=== PATIENT | female | born 1990 | race Caucasian/White ===

== ENCOUNTER 2022-08-16 12:17 | Emergency (ER) | payer OTHER, SELFPAY ==
[2022-08-16] VITALS (15 sets, daily range): BP systolic 109–126; BP diastolic 68–80; PULSE 70–124; RESP 16–32; TEMP 36.4; O2SAT 97–100
--- NOTE | ~2022-08-16 | CT_ITS ---
EXAMINATION: CT brain wo con DATE: 08/16/2022 16:09 INDICATION: Headache. TECHNIQUE: Computed tomography (CT) of the head was performed without intravenous contrast. The mA wa s adjusted according to patient size. Iterative reconstruction technique was employed. The dose-lengt h product was 605.33 mGy-cm. COMPARISON: None FINDINGS: There is no intracranial hemorrhage, acute infarction, or abnormal intracranial mass lesion . The ventricles are normal in size. The orbits are normal. There is mucosal thickening in the parana arin sinuses. The mastoid air cells are normal. IMPRESSION: 1. Normal brain. Reviewed, dictated and finalized at location A. MILL TEAM LEADER IMPRESSION: 1. Normal brain.
--- NOTE | ~2022-08-16 | XR_ITS ---
EXAMINATION: XR chest 1V portable INDICATION: Fever and cough, COVID 19 positive TECHNIQUE: Portable AP chest at 1447 hours COMPARISON: None available FINDINGS: The lungs are free of acute opacities. No pleural effusion or pneumothorax. The cardiomedia stinal silhouette is normal. IMPRESSION: 1. No acute cardiopulmonary abnormality. Reviewed, dictated and finalized at location L. BALL COVER TREATER
--- NOTE | 2022-08-16 12:45 | ECG_ITS ---
Measurements Intervals [place] Rate: 116 P: 85 TX: 120 QRS: 105 QRSD: 80 T: 58 QT: 317 QTc: 441 Interpretive Statements SINUS TACHYCARDIA NONSPECIFIC ST AND T-WAVE ABNORMALITY NO PREVIOUS ECG AVAILABLE FOR COMPARISON Electronically Signed On 08-16-2022 16:26:54 VP DIRECTOR OF FINANCE by Mary Bethea M.D.
[2022-08-16 13:31] LABS: Influenza A QL RT-PCR Negative (Negative); Influenza B QL RT-PCR Negative (Negative); RSV RNA, RT-PCR Negative (Negative); SARS-CoV-2 RNA PCR Positive
[2022-08-16] MEDS: SODIUM CHLORIDE 0.9% IV 1,000 ML 999 ML IV CONT (15:09)
[2022-08-16 15:16] LABS: Basophils Absolute Auto 0.1 K/mm3 (0.0-0.1); Basophils Percent Auto 1.6 % (0.2-1.2); Eosinophils Absolute Auto 0.1 K/mm3 (0-0.3); Eosinophils Percent Auto 2.5 % (0-4.4); Hematocrit 43.8 % (37.0-47.0); Hemoglobin 14.4 g/dL (12.0-15.0); Immature Granulocyte Absolute 0.01 K/mm3 (0.00-0.031); Immature Granulocyte Percent A 0.2 % (0-0.5); Lymphocytes Absolute Auto 1.03 K/mm3 (0.9-3.2); Mean Corpuscular HGB Conc 32.9 g/dl (32-36); Mean Corpuscular Hemoglobin 29.8 pg (26-34); Mean Corpuscular Volume 90.5 fl (80-100); Mean Platelet Volume 9.2 fl (7.4-10.4); Monocytes Absolute Auto 0.8 K/mm3 (0.1-0.6); Monocytes Percent Auto 18.3 % (2.6-8.5); Neutrophils Absolute Auto 2.4 K/mm3 (1.3-6.7); Neutrophils Percent Auto 54.4 % (45.5-73.1); Platelet Count Result 220 k/mm3 (150-375); Red Blood Count 4.84 M/mm3 (4.2-5.4); Red Cell Distribution Width 13.1 % (11.5-14.5); White Blood Count 4.5 K/mm3 (4.5-10.0)
[2022-08-16 15:31] LABS: Partial Thromboplastin Time 28.4 SECONDS (22.3-36.8)
[2022-08-16 15:32] LABS: Alanine Aminotransferase 21 U/L (6-35); Albumin Level 4.6 g/dL (3.5-5.1); Alkaline Phosphatase 43 U/L (38-126); Anion Gap 10 mmol/L (8-16); Aspartate Amino Transferase 23 U/L (14-36); Bilirubin,Total 0.5 mg/dL (0.2-1.3); Blood Urea Nitrogen 8 mg/dL (7-17); Calcium 8.3 mg/dL (8.4-10.2); Carbon Dioxide 21 mmol/L (22-30); Chloride 105 mmol/L (98-107); Estimated CRCL calculation 108 ml/min; Estimated Glomerular Filt Rate > 60; Glucose 81 mg/dL (65-110); Potassium 3.8 mmol/L (3.4-5.0); Sodium 136 mmol/L (137-145)
[2022-08-16 15:33] LABS: INR 1.2; Prothrombin Time 14.3 Seconds (11.1-14.7)
--- NOTE | 2022-08-16 15:34 | ED.URI ---
HPI - URI/Sore Throat General Chief Complaint: Upper Respiratory Infection Stated Complaint: cough symptoms Time Seen by Provider: 08/16/22 14:35 Source: patient Mode of arrival: ambulatory Limitations: no limitations History of Present Illness HPI Narrative: This is a 32 year old female that presents to the ER for cold symptoms ongoing over the last 2 days. Reports fever, cough, congestion, sore throat, headache and myalgias. Also reports shortness of breath. She is COVID vaccinated. Denies chest pain. Related Data Allergies Allergy/AdvReac Type Severity Reaction Status Date / Time latex Allergy Unknown Unknown Verified 08/16/22 14:27 Review of Systems Review of Systems: CONSTITUTIONAL: Reports fever ENT: Reports rhinorrhea, congestion, sore throat CARDIOVASCULAR: Denies chest pain, or edema. RESPIRATORY: Reports cough and dyspnea. NEUROLOGIC: Reports headache. Denies numbness, or weakness. All systems reviewed & are unremarkable except as noted in HPI and below PMFSH Past Medical History Medical History (Updated 08/16/22 @ 16:03 by Caron Camacho PA-C) History of asthma Social History Social History (Updated 08/16/22 @ 15:38 by Caron Camacho PA-C) Substance use: never Exam Narrative: GENERAL: Well-appearing, well-nourished, and in no acute distress. HEAD: Normocephalic, atraumatic. EYES: PERRLA and EOMI. ENT: Nares clear, no rhinorrhea or epistaxis. Mucous membranes moist. Oropharynx without tonsillar hypertrophy exudate or other lesions. Bilateral TMs pearly crenshaw non-bulging NECK: Supple. No adenopathy or masses. CHEST: Clear to auscultation. No respiratory distress. No wheezes rales or rhonchi HEART: Regular rate and rhythm. No murmur heard. Normal peripheral pulses. EXTREMITIES: Normal range of motion. No edema. SKIN: Warm, dry, no rash. NEURO: No focal deficits. Alert and oriented x3. CN II-XII grossly intact PSYCH: Normal mood and affect Course Course Emergency Course: Patient updated on workup. Resting comfortably. Agrees with plan of care Vital Signs Vital signs: Vital Signs Temperature 97.5 F L 08/16/22 12:41 Pulse Rate 124 H 08/16/22 12:41 Respiratory Rate 18 08/16/22 12:41 Blood Pressure 117/76 08/16/22 12:41 Pulse Oximetry 97 08/16/22 12:41 Oxygen Delivery Room Air 08/16/22 12:41 Temperature 97.5 F L 08/16/22 12:41 Pulse Rate 93 08/16/22 15:30 Respiratory Rate 16 08/16/22 15:30 Blood Pressure 126/80 08/16/22 15:30 Pulse Oximetry 98 08/16/22 15:30 Oxygen Delivery Room Air 08/16/22 12:41 MDM - URI/Sore Throat MDM Narrative Medical decision making narrative: Patient presents to the ER for cold symptoms ongoing over the last 2 days. Reporting fever, cough, shortness of breath and headache. She is afebrile and nontoxic appearing. Tachycardic upon arrival. This normalized with IV fluid administration. CBC and metabolic panel without concerning findings. Chest x-ray without acute findings. D dimer is not elevated. Patient found to be positive for COVID. CT brain is without acute findings. Patient resting comfortably after Tylenol, Reglan and Benadryl. Patient updated on workup and agrees with plan of care. She is to follow up with PCP. She was given warnings to return to the ER Differential Diagnosis Differential diagnosis: Likely upper respiratory infection, sinusitis, viral infection, bronchitis, influenza, pharyngitis and other (covid 19, PE) Lab Data Attestation: I reviewed the patient's lab results. 08/16/22 15:01 08/16/22 15:01 Labs: Lab Results 08/16/22 08/16/22 08/16/22 Range/Units 12:50 15:01 15:01 WBC 4.5 (4.5-10.0) K/mm3 RBC 4.84 (4.2-5.4) M/mm3 Hgb 14.4 (12.0-15.0) g/dL Hct 43.8 (37.0-47.0) % MCV 90.5 (80-100) fl MCH 29.8 (26-34) pg MCHC 32.9 (32-36) g/dl RDW 13.1 (11.5-14.5) % Plt Count 220 (150-375) k/mm3 MPV 9.2 (7.4-10.4) fl Immature Gran % (A
[2022-08-16] MEDS: METOCLOPRAMIDE HCL INJ 10 MG/2 ML VIAL IV PUSH (15:37)
[2022-08-16] MEDS: diphenhydrAMINE HCl INJ 50 MG/ML VIAL 25 MG IV PUSH (15:37)
[2022-08-16 15:55] LABS: D Dimer 0.28 ug/mL (<0.48)
== END 2022-08-16 17:25 | disposition home or self-care (01) ==
PROVIDERS: Emergency Medicine; Emergency Provider Physician Assistant
DX: U07.1 COVID-19 (principal); J45.909 Unspecified asthma, uncomplicated
CPT/HCPCS: 36415; 70450; 71045; 80053; 85025; 85380; 85610; 85730; 87637; 93005; 96361; 96365; 96375; 99284; J0131; J1200; J2765; J7030

== ENCOUNTER 2022-11-04 09:52 | Outpatient (CLI) | payer OTHER, SELFPAY ==
[2022-11-04 11:19] LABS: HIV 1/2 Ab P24 Ag Result Negative (Negative)
[2022-11-04 11:24] LABS: Hepatitis B Surface Antigen Negative (Negative)
[2022-11-04 11:29] LABS: HAV RESULT Negative (Negative)
[2022-11-04 11:41] LABS: Hepatitis C Virus Antibody Negative (Negative)
[2022-11-07 10:05] LABS: Rapid Plasma Reagin Non-Reactive (NonReactive)
== END 2022-11-04 09:53 | disposition home or self-care (01) ==
LOC: ANHLAB 09:53
PROVIDERS: Visit Provider Student in an Organized Health Care Education/Training Program
DX: Z01.419 Encounter for gynecological examination (general) (routine) without abnormal findings (principal); A64 Unspecified sexually transmitted disease
CPT/HCPCS: 36415; 86592; 86695; 86696; 86703; 86709; 86803; 87340; G0432

== ENCOUNTER 2023-02-09 17:13 | Emergency (ER) | payer OTHER, SELFPAY ==
[2023-02-09 17:30] VITALS: BP 136/71; PULSE 81; RESP 18; TEMP 36.7; O2SAT 99
--- NOTE | 2023-02-09 17:53 | ED.FEMALEGU ---
HPI - Female Genitourinary General Chief complaint: Urogenital-Female Stated complaint: uti symptoms Time Seen by Provider: 02/09/23 17:43 Source: patient and RN notes reviewed Mode of arrival: ambulatory Limitations: no limitations History of Present Illness HPI Narrative: Patient presents today complaining of 2 month history of dysuria, lower abdominal pain, painful sexual intercourse, and white vaginal discharge. States she would like to be tested for sexually transmitted infections today. She does currently have 1 male partner. Denies hematuria. Related Data Home Medications Medication Instructions Recorded Confirmed diltiazem HCl 180 mg 180 mg PO DAILY 10/07/22 02/09/23 tablet,extended release 24 hr albuterol sulfate 90 mcg/actuation 2 puff inhalation Q4H 02/09/23 02/09/23 aerosol inhaler (Ventolin HFA) budesonide-formoterol HFA 80 2 puff inhalation BID 02/09/23 02/09/23 mcg-4.5 mcg/actuation aerosol inhaler (Symbicort) montelukast 10 mg tablet 10 mg PO DAILY 02/09/23 02/09/23 Allergies Allergy/AdvReac Type Severity Reaction Status Date / Time latex Allergy Mild Hives Verified 10/07/22 08:38 Review of Systems Review of Systems: CONSTITUTIONAL: Denies body aches, fever, chills, or sweats. EYES: Denies visual changes, redness, or discharge. ENT: Denies rhinorrhea, congestion, sore throat, or otalgia. CARDIOVASCULAR: Denies chest pain, palpitations, or edema. RESPIRATORY: Denies cough or dyspnea. GASTROINTESTINAL: Denies abdominal pain, nausea, vomiting, or diarrhea. GENITOURINARY: + dysuria, dyspareunia, vaginal discharge, lower abdominal pain SKIN: Denies rash, itching, or wounds. MUSCULOSKELETAL: Denies back pain, joint pain, or myalgia. NEUROLOGIC: Denies headache, numbness, tingling, or weakness. PSYCH: Denies depression or anxiety. 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 Please see nursing chart for further information. There is no relevant family history pertinent to the presenting complaint Exam Narrative: GENERAL: Well-appearing, well-nourished, and in no acute distress. HEAD: Normocephalic, atraumatic. EYES: EOMI. No redness or drainage. Conjunctivae normal. ENT: Mucous membranes pink and moist. NECK: Normal AROM. CHEST: No respiratory distress. Clear to auscultation. HEART: Regular rate and rhythm. No murmur appreciated. ABDOMEN: Soft, nontender, nondistended, normal active bowel sounds. EXTREMITIES: Normal range of motion. No edema. SKIN: Warm, dry, no rash. Capillary refill normal. Normal skin turgor. NEURO: No focal deficits. Alert and oriented x3. Gait steady. PSYCH: Normal affect. No signs of depression or anxiety. Course Course Level of Care: Express Care Visit Vital Signs
[2023-02-09] MEDS: cefTRIAXone 500 MG, LIDOCAINE HCL 1% LOCAL INJ 1 ML IM (18:11)
== END 2023-02-09 18:31 | disposition home or self-care (01) ==
PROVIDERS: Emergency Provider Nurse Practitioner; PCP Family Medicine
DX: N30.01 Acute cystitis with hematuria (principal); Z11.3 Encounter for screening for infections with a predominantly sexual mode of transmission; F84.0 Autistic disorder; J45.909 Unspecified asthma, uncomplicated; Z87.891 Personal history of nicotine dependence
CPT/HCPCS: 81003; 87077; 87086; 87088; 87186; 87491; 87591; 87661; 96372; 99214; G0463; J0696

== ENCOUNTER 2023-05-27 12:30 | Emergency (ER) | payer OTHER, SELFPAY ==
[2023-05-27 13:11] VITALS: BP 127/89; PULSE 90; RESP 16; TEMP 37; O2SAT 97
--- NOTE | 2023-05-27 13:12 | ED.URI ---
HPI - URI/Sore Throat General Chief Complaint: Upper Respiratory Infection Stated Complaint: fever,sweats,sore throat Time Seen by Provider: 05/27/23 13:12 Source: patient, RN notes reviewed and old records reviewed Mode of arrival: ambulatory Limitations: no limitations History of Present Illness HPI Narrative: 32-YEAR-OLD FEMALE PRESENTS TO [facility] WITH COMPLAINTS SLIGHT COUGH AND SCRATCHY THROAT FOR FEW DAYS. PATIENT STATES SHE HAS SEASONAL ALLERGIES CANNOT TELL IF IT IS THAT. PATIENT STATES HERE TO BE TESTED DUE TO CHILD HAVING A POSITIVE STREP TEST TODAY. MD elicited complaint: cough and sore throat Related Data Home Medications Medication Instructions Recorded Confirmed albuterol sulfate 90 mcg/actuation 2 puff inhalation Q4H 02/09/23 05/27/23 aerosol inhaler (Ventolin HFA) budesonide-formoterol HFA 80 2 puff inhalation BID 02/09/23 05/27/23 mcg-4.5 mcg/actuation aerosol inhaler (Symbicort) montelukast 10 mg tablet 10 mg PO DAILY 02/09/23 05/27/23 Allergies Allergy/AdvReac Type Severity Reaction Status Date / Time latex Allergy Mild Hives Verified 05/27/23 13:18 Review of Systems Review of Systems: All systems reviewed & are unremarkable except as noted in HPI and below Constitutional: Constitutional: Reports no additional constitutional complaints Eyes: Eyes: Reports no additional eye complaints ENT: Reports as per HPI and Reports sore throat Cardiovascular: Cardiovascular: Reports no additional cardiovascular complaints Respiratory: Respiratory: Reports as per HPI and Reports cough Neurologic: Reports system reviewed and no additional complaints, except as documented PMF Past Medical History Medical History Atrial tachycardia Autism 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 History of asthma Surgical History Surgical History H/O gynecological procedure nexplanon insertion 2017 nexplanon removal 2019 H/O partial thyroidectomy History of appendectomy History of tubal ligation Family History Family History Grandparent Breast cancer Mother Santosh's disease Lupus Social History Social History Smoking status: Never smoker Alcohol intake: never Substance use: current Other substance usage details: cbd gummies Living arrangements: with family Additional living arrangements comments: kids Occupation/Education: occupation 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 There is no relevant family history pertinent to the patient complaint. Exam Const: General: cooperative, healthy appearing, no acute distress and well nourished Nutritional Appearance: well nourished Orientation/consciousness: patient oriented x3 Limitations: no limitations HENMT: Head: normal to inspection and normocephalic Ears: external ears normal, TM's normal bilaterally, mastoids normal and Abnormal EAC present Face/Nose/Sinus: normal facial exam Face and sinus: normal facial exam Mouth: Yes Normal oral and palatal mucosa present, Yes oropharynx normal and Yes moist mucous membranes Throat: posterior oropharynx normal, tonsils normal, uvula midline and no uvular edema Eyes: General: appearance normal, both eyes and all related structures Sclera: sclerae normal Pupils: Equal, round and reactive pupils present Resp: Effort & Inspection: normal respiratory effort, able to speak in complete sentences, no audible wheezes, no co
== END 2023-05-27 13:31 | disposition home or self-care (01) ==
PROVIDERS: Emergency Provider Registered Nurse; PCP Family Medicine
DX: J06.9 Acute upper respiratory infection, unspecified (principal); F84.0 Autistic disorder; J45.909 Unspecified asthma, uncomplicated; Z90.89 Acquired absence of other organs
CPT/HCPCS: 87081; 87880; 99213; G0463

== ENCOUNTER 2023-06-06 16:57 | Emergency (ER) | payer OTHER, SELFPAY ==
[2023-06-06 17:04] VITALS: BP 127/83; PULSE 87; RESP 16; TEMP 36.6; O2SAT 100
--- NOTE | 2023-06-06 17:29 | ED.GENADULT ---
HPI - General Adult General Chief complaint: Upper Respiratory Infection Stated complaint: Strep symptoms Source: patient Mode of arrival: ambulatory Limitations: no limitations History of Present Illness HPI narrative: Patient presents for evaluation of sick symptoms. She was evaluated here on 05/27/2023 after her child tested positive for strep. Strep at that time was negative. Sore throat has persisted and worsened. She reports hot flashes, chills, nausea, vomiting, diarrhea, sweats and generalized body aches. She denies any cough or shortness of breath. She took Tylenol, ibuprofen and has gargled with an antibacterial mouthwash. Her symptoms are not improving. Related Data Home Medications Medication Instructions Recorded Confirmed albuterol sulfate 90 mcg/actuation 2 puff inhalation Q4H 02/09/23 06/06/23 aerosol inhaler (Ventolin HFA) budesonide-formoterol HFA 80 2 puff inhalation BID 02/09/23 06/06/23 mcg-4.5 mcg/actuation aerosol inhaler (Symbicort) montelukast 10 mg tablet 10 mg PO DAILY 02/09/23 06/06/23 Allergies Allergy/AdvReac Type Severity Reaction Status Date / Time latex Allergy Mild Hives Verified 06/06/23 17:11 Review of Systems Review of Systems: CONSTITUTIONAL: Reports hot flashes, chills and sweats EYES: Denies visual changes, redness, or discharge. ENT: Reports sore throat and cervical lymphadenopathy. CARDIOVASCULAR: Denies chest pain, palpitations, or edema. RESPIRATORY: Denies cough or dyspnea. GASTROINTESTINAL: Reports nausea, vomiting and diarrhea GENITOURINARY: Denies dysuria or hematuria. SKIN: Denies rash or itching. MUSCULOSKELETAL: Reports generalized body aches NEUROLOGIC: Denies headache, numbness, dizziness, or weakness. PSYCHIATRIC: Denies anxiety or depression. 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 History of asthma Surgical History Surgical History H/O gynecological procedure nexplanon insertion 2017 nexplanon removal 2019 H/O partial thyroidectomy History of appendectomy History of tubal ligation Family History Family History Grandparent Breast cancer Mother Santosh's disease Lupus Social History Social History Smoking status: Never smoker Alcohol intake: never Substance use: current Other substance usage details: cbd gummies Living arrangements: with family Additional living arrangements comments: kids Occupation/Education: 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 EYES: PERRLA and EOMI. ENT: Nares clear, no rhinorrhea or epistaxis. Mucous membranes moist. Posterior pharyngeal erythema without exudate. Uvula is midline. Bilateral TMs pearly crenshaw nonbulging NECK: Supple. No adenopathy or masses. No carotid bruits or JVD CHEST: Clear to auscultation. No respiratory distress. No wheezes rales or rhonchi HEART: Regular rate and rhythm. No murmur heard. Normal peripheral pulses. ABDOMEN: Soft, nontender, nondistended, normal active bowel sounds. EXTREMITIES: Normal range of motion. No edema. SKIN: Warm, dry, no rash. NEURO: No focal deficits. Alert and oriented x3. PSYCH: Normal mood and affect. Course Course Emergency Course: This is a 32-year-old female who presented for evaluation a sore throat after recent strep exposure. Strep here negative. Influenza and COVID negative.
== END 2023-06-06 18:09 | disposition home or self-care (01) ==
PROVIDERS: Emergency Provider Nurse Practitioner; PCP Family Medicine
DX: J02.9 Acute pharyngitis, unspecified (principal); Z20.822 Contact with and (suspected) exposure to COVID-19; F84.0 Autistic disorder; J45.909 Unspecified asthma, uncomplicated; Z90.89 Acquired absence of other organs
CPT/HCPCS: 87081; 87426; 87804; 87880; 99213; C9803; G0463

== ENCOUNTER 2023-07-09 13:35 | Emergency (ER) | payer OTHER, SELFPAY ==
--- NOTE | ~2023-07-09 | XR_ITS ---
EXAMINATION: XR chest 2V DATE: 07/09/2023 15:19 INDICATION: Transient alteration of awareness TECHNIQUE: PA and lateral views of the chest are obtained. COMPARISON: 08/16/2022 FINDINGS: The lungs are free of acute opacities. No pleural effusion or pneumothorax. The cardiomedia stinal silhouette is normal. The visualized bones and soft tissues are unremarkable. IMPRESSION: 1. No acute cardiopulmonary abnormality. Reviewed, dictated and finalized at location F. STANT TO THE PRESIDENT
[2023-07-09 13:53] VITALS: BP 151/88; PULSE 127; RESP 22; TEMP 36.4; O2SAT 100
--- NOTE | 2023-07-09 13:55 | ECG_ITS ---
Measurements Intervals [place] Rate: 104 P: 72 SC: 150 QRS: 101 QRSD: 90 T: 62 QT: 333 QTc: 439 Interpretive Statements SINUS TACHYCARDIA RIGHT AXIS DEVIATION DELAYED PRECORDIAL R/S TRANSITION BORDERLINE ECG COMPARED TO ECG 08/16/2022 12:51:05 NO SIGNIFICANT CHANGES Electronically Signed On 07-09-2023 16:14:36 OIL SPOT WASHER by Kermit Bullard D.O.
[2023-07-09 14:17] LABS: Basophils Absolute Auto 0.1 K/mm3 (0.0-0.1); Basophils Percent Auto 1.2 % (0.2-1.2); Eosinophils Absolute Auto 0.3 K/mm3 (0-0.3); Eosinophils Percent Auto 4.3 % (0-4.4); Hematocrit 44.4 % (37.0-47.0); Hemoglobin 14.1 g/dL (12.0-15.0); Immature Granulocyte Absolute 0.02 K/mm3 (0.00-0.031); Immature Granulocyte Percent A 0.3 % (0-0.5); Lymphocytes Absolute Auto 2.45 K/mm3 (0.9-3.2); Lymphocytes Percent Auto 42.2 % (18.3-44.2); Mean Corpuscular HGB Conc 31.8 g/dl (32-36); Mean Corpuscular Hemoglobin 28.7 pg (26-34); Mean Corpuscular Volume 90.2 fl (80-100); Monocytes Absolute Auto 0.3 K/mm3 (0.1-0.6); Monocytes Percent Auto 5.5 % (2.6-8.5); Neutrophils Absolute Auto 2.7 K/mm3 (1.3-6.7); Neutrophils Percent Auto 46.5 % (45.5-73.1); Platelet Count Result 316 k/mm3 (150-375); Red Blood Count 4.92 M/mm3 (4.2-5.4); Red Cell Distribution Width 12.2 % (11.5-14.5); White Blood Count 5.8 K/mm3 (4.5-10.0)
[2023-07-09 14:30] LABS: Alanine Aminotransferase 24 U/L (6-35); Albumin Level 4.6 g/dL (3.5-5.1); Alkaline Phosphatase 51 U/L (38-126); Anion Gap 9 mmol/L (8-16); Aspartate Amino Transferase 29 U/L (14-36); Bilirubin,Total 0.5 mg/dL (0.2-1.3); Blood Urea Nitrogen 14 mg/dL (7-17); Calcium 9.5 mg/dL (8.4-10.2); Carbon Dioxide 27 mmol/L (22-30); Chloride 103 mmol/L (98-107); Estimated CRCL calculation 108 ml/min; Estimated Glomerular Filt Rate > 60; Glucose 100 mg/dL (65-110); Potassium 4.3 mmol/L (3.4-5.0); Sodium 139 mmol/L (137-145)
[2023-07-09 14:40] VITALS: O2SAT 98
[2023-07-09 14:43] VITALS: BP 130/80; PULSE 87; RESP 16; O2SAT 98
--- NOTE | 2023-07-09 15:02 | ED.SYNCOPE ---
HPI - Syncope General Chief Complaint: Syncope Stated Complaint: syncope, shaky Time Seen by Provider: 07/09/23 15:01 Source: patient Mode of arrival: ambulatory Limitations: no limitations History of Present Illness HPI narrative: This is a 32 year old female that presents to the ER for pre-syncopal episode today. Reports history of POTS. Reports her dose of Diltiazem was recently increased for management of this. She follows with a Director Of Dementia Operations with [facility]. Reports long-standing history of pre-syncopal episodes. She has been having trouble with burning chest pain the last couple of days. She had one today while doing laundry. Reports she started to fell lightheaded and short of breath. She almost passed out, but caught her self on the fridge. Reports she has felt shaky since. Denies vision changes, vomiting or numbness. Related Data Home Medications Medication Instructions Recorded Confirmed albuterol sulfate 90 mcg/actuation 2 puff inhalation Q4H 02/09/23 06/06/23 aerosol inhaler (Ventolin HFA) budesonide-formoterol HFA 80 2 puff inhalation BID 02/09/23 06/06/23 mcg-4.5 mcg/actuation aerosol inhaler (Symbicort) montelukast 10 mg tablet 10 mg PO DAILY 02/09/23 06/06/23 Allergies Allergy/AdvReac Type Severity Reaction Status Date / Time latex Allergy Mild Hives Verified 07/09/23 14:44 Review of Systems Review of Systems: CONSTITUTIONAL: Denies fever EYES: Denies visual changes CARDIOVASCULAR: Reports chest pain, palpitations RESPIRATORY: Reports cough and dyspnea. GASTROINTESTINAL: Denies vomiting NEUROLOGIC: Denies numbness, or weakness. 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 History of asthma Surgical History Surgical History H/O gynecological procedure nexplanon insertion 2017 nexplanon removal 2019 H/O partial thyroidectomy History of appendectomy History of tubal ligation Family History Family History Grandparent Breast cancer Mother Santosh's disease Lupus Social History Social History Smoking status: Never smoker Alcohol intake: never Substance use: current Other substance usage details: cbd gummies Living arrangements: with family Additional living arrangements comments: kids Occupation/Education: occupation 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 HEAD: Normocephalic, atraumatic. EYES: PERRLA and EOMI. ENT: Nares clear, no rhinorrhea or epistaxis. Mucous membranes moist. Oropharynx without tonsillar hypertrophy exudate or other lesions. Bilateral TMs pearly crenshaw non-bulging NECK: Supple. No adenopathy or masses. CHEST: Clear to auscultation. No respiratory distress. No wheezes rales or rhonchi HEART: Regular rate and rhythm. No murmur heard. Normal peripheral pulses. EXTREMITIES: Normal range of motion. No edema. SKIN: Warm, dry, no rash. NEURO: No focal deficits. Alert and oriented x3. CN II-XII grossly intact PSYCH: Normal mood and affect Course Course Emergency Course: Patient updated on workup and agrees with plan of care Vital Signs Vital signs: Vital Signs Temperature 97.6 F 07/09/23 13:53 Pulse Rate 127 H 07/09/23 13:53 Respiratory Rate 22 H 07/09/23 13:53 Blood Pressure 151/88 H 07/09/23 13:53 Pulse Oximetry 100 07/09/23 13:53 Oxygen Delivery
[2023-07-09] MEDS: SODIUM CHLORIDE 0.9% IV 1,000 ML 999 ML IV CONT (15:25)
[2023-07-09] MEDS: PANTOPRAZOLE SODIUM IV 40 MG VIAL IV PUSH (15:41)
[2023-07-09 15:48] VITALS: BP 133/85; PULSE 78; RESP 19; O2SAT 100
[2023-07-09 15:50] LABS: Troponin I < 0.012 ng/mL (0.000-0.034)
[2023-07-09 16:36] LABS: D Dimer < 0.27 ug/mL (<0.48)
== END 2023-07-09 18:16 | disposition home or self-care (01) ==
PROVIDERS: Emergency Medicine; Emergency Provider Physician Assistant; PCP Family Medicine
DX: R55 Syncope and collapse (principal); G90.A Postural orthostatic tachycardia syndrome [POTS]; J45.909 Unspecified asthma, uncomplicated; F84.0 Autistic disorder; Z79.51 Long term (current) use of inhaled steroids
CPT/HCPCS: 36415; 71046; 80053; 84443; 84484; 85025; 85380; 93005; 96361; 96374; 99284; C9113; J7030

== ENCOUNTER 2023-08-03 17:09 | Emergency (ER) | payer OTHER, SELFPAY ==
[2023-08-03 17:28] VITALS: BP 114/79; PULSE 71; RESP 16; TEMP 36.6; O2SAT 100
--- NOTE | 2023-08-03 17:34 | ED.URI ---
HPI - URI/Sore Throat General Chief Complaint: Upper Respiratory Infection Stated Complaint: THROAT SWELLING/SORES IN MOUTH/TENSION IN JAW Time Seen by Provider: 08/03/23 17:34 Source: patient, RN notes reviewed and old records reviewed Mode of arrival: ambulatory Limitations: no limitations History of Present Illness HPI Narrative: 33-year-old female presents to the [facility] with complaints of cold sores on her tongue and bottom lip, sore throat Patient states her jaw also feels stiff at times. Denies fever States the sore throat has been going on for ?a long time. Related Data Home Medications Medication Instructions Recorded Confirmed albuterol sulfate 90 mcg/actuation 2 puff inhalation Q4H 02/09/23 06/06/23 aerosol inhaler (Ventolin HFA) budesonide-formoterol HFA 80 2 puff inhalation BID 02/09/23 06/06/23 mcg-4.5 mcg/actuation aerosol inhaler (Symbicort) montelukast 10 mg tablet 10 mg PO DAILY 02/09/23 06/06/23 budesonide-formoterol HFA 160 inhalation 08/03/23 mcg-4.5 mcg/actuation aerosol inhaler (Symbicort) diltiazem HCl 120 mg mg PO 08/03/23 capsule,extended release 24 hr, controlled Allergies Allergy/AdvReac Type Severity Reaction Status Date / Time latex Allergy Mild Hives Verified 08/03/23 17:20 Review of Systems Review of Systems: All systems reviewed & are unremarkable except as noted in HPI and below Constitutional: Constitutional: Reports no additional constitutional complaints Eyes: Eyes: Reports no additional eye complaints ENT: Reports as per HPI Cardiovascular: Cardiovascular: Reports no additional cardiovascular complaints, Denies chest pain and Denies dyspnea Respiratory: Respiratory: Reports no additional respiratory complaints, Denies chest congestion, Denies cough and Denies dyspnea Gastrointestinal: Gastrointestinal: Reports no additional gastrointestinal complaints, Denies abdominal pain, Denies nausea and Denies vomiting Musculoskeletal: Musculoskeletal: Reports no additional musculoskeletal complaints Integumentary/Breasts: Skin/Breast: Reports system reviewed and no additional complaints, except as docu Neurologic: Reports system reviewed and no additional complaints, except as documented Psychiatric: Psychiatric: Reports no additional psychiatric complaints Allergic/Immunologic: Allergic/Immunologic: Reports no additional allergic/immunologic complaints PMFSH Past Medical History Medical History (Updated 08/03/23 @ 18:13 by Lisa Kauffman APRN) Atrial tachycardia Autism 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 History of asthma Surgical History Surgical History (Updated 08/03/23 @ 18:13 by Lisa Kauffman APRN) H/O gynecological procedure nexplanon insertion 2017 nexplanon removal 2019 H/O partial thyroidectomy History of appendectomy History of tonsillectomy History of tubal ligation Family History Family History Grandparent Breast cancer Mother Santosh's disease Lupus Social History Social History Smoking status: Never smoker Alcohol intake: never Substance use: current Other substance usage details: cbd gummies Living arrangements: with family Additional living arrangements comments: kids Occupation/Education: occupation 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 There is no relevant family history pertinent to the patient complaint. Exam Const: General: cooperative, healthy appearing, comfortable, no acute distress, well developed, alert and well alex
== END 2023-08-03 17:49 | disposition home or self-care (01) ==
PROVIDERS: Emergency Provider Nurse Practitioner; PCP Family Medicine
DX: B00.1 Herpesviral vesicular dermatitis (principal); J02.9 Acute pharyngitis, unspecified; F84.0 Autistic disorder; J45.909 Unspecified asthma, uncomplicated
CPT/HCPCS: 87081; 87880; 99213; G0463